=== PATIENT | female | born 1945 | race Caucasian/White ===

== ENCOUNTER → 2017-06-21 09:27 | Outpatient (CLI) | payer MEDICARE, OTHER ==
[2016-06-19 10:06] VITALS: BMI 26.9
[~2017-06-21 09:27] MED LIST: ACETAMINOPHEN500 M1 PO; ALENDRONATE SOD70 MG PO; CENTRUM COMPLE1 EACH PO; COREG6.25 MG PO; GLUCOPHAGE1000 MG PO; GLUCOTROL 5 MG T5 MG PO; HYDROCODON-ACE1 EAC7 PO; LEVOTHYROXINE50 MCG PO; LIPITOR20 MG PO; LISINOPRIL10 MG PO; MIRALAX17 GM PO; TRADJENTA5 MG PO
[2017-06-21 09:58] LABS: BASOPHILS 0.5 % (0-2); EOSINOPHILS 3.1 % (0-7); HEMATOCRIT 40.7 % (36.0-48.0); HEMOGLOBIN 13.4 g/dL (12-16); IMMATURE GRANULOCYTES 0.5 % (0-5); LYMPHOCYTES 42.3 % (15-50); MCH 29.5 pg (26.0-34.0); MCHC 32.9 g/dL (31.0-37.0); MCV 89.6 fL (80.0-100.0); MEAN PLATELET VOLUME 9.3 fL (7.4-10.4); MONOCYTES 5.4 % (2-11); NEUTROPHILS 48.2 % (40-80); RBC 4.54 10x6/uL (4.00-5.40); RDW 13.5 % (11.5-14.5); WBC 5.5 10x3/uL (4.8-10.8)
[2017-06-21 10:03] LABS: PLATELET COUNT 133 10x3/uL (130-400)
[2017-06-21 10:19] LABS: ALBUMIN 3.8 g/dL (3.4-5.0); ANION GAP 13.4 mmol/L (8-16); BILIRUBIN - DIRECT 0.17 mg/dL (0.00-0.30); BILIRUBIN - INDIRECT 0.48 mg/dL (0.00-1.00); BILIRUBIN - TOTAL 0.65 mg/dL (0.2-1.3); CALCIUM 9.4 mg/dL (8.5-10.1); CARBON DIOXIDE 26.3 mmol/L (21.0-32.0); POTASSIUM - SERUM 4.7 mmol/L (3.5-5.1)
== END | disposition home or self-care (01) ==
LOC: D.LAB 09:27 → D.CT 12:00
PROVIDERS: Surgery
DX: C18.2 Malignant neoplasm of ascending colon (principal)

== ENCOUNTER 2017-11-05 07:45 | Day surgery (SDC) | payer MEDICARE, OTHER ==
[~2017-11-05] VITALS: Ht 167.6 cm; Wt 77.6 kg
--- NOTE | ~2017-11-05 | OP ---
PATIENT NAME: IRINA SERNA MEDICAL RECORD: [id number] :43 LOCATION:D.OPS ADMISSION DATE: SURGEON: ALON MELGOZA MD DATE OF OPERATION: 11/05/2017 PREOPERATIVE DIAGNOSES: 1. 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 2. History of colon cancer. POSTOPERATIVE DIAGNOSES: 1. 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 2. History of colon cancer. 3. Some hemorrhage from the polypectomy site, which required the placement of a hemostatic clip. PROCEDURES: 1. Total colonoscopy to cecum. 2. Polypectomy with submucosal epinephrine injection through sclerotherapy needle, snare polypectomy, and then ablation of the polypoid base with the argon plasma instructor of sociology and control of hemorrhage with one hemostatic clip. SURGEON: Alon Melgoza MD [employer]CHNOLOG[employer] ARCHITECT: None. BLOOD LOSS: Minimal. ANESTHESIA: General. COMPLICATIONS: None. The risks, possible complications, and alternatives to procedure were explained to the patient. She elects to proceed. OPERATIVE COURSE: The patient was conveyed to the operating room electively on 11/05/2017. General anesthesia was induced by the anesthesia staff. The patient was placed in the Aleman position. A digital rectal examination was performed. A colonoscope was inserted through the anus. It was easily advanced to the cecum. The prep was poor. I then slowly withdrew the endoscope. I irrigated and aspirated extensively. I dragged the folds. The pullback was greater than a 20-minute pullback. I identified the polyp as well as the nearby tattoo. I performed a submucosal injection of epinephrine through a sclerotherapy needle. There was a good pillow and lift of the polyp from the colonic wall. I advanced an endoscopic snare. I performed a snare polypectomy near the base of this semi-pedunculated polyp. I then performed some cold biopsies at the base of the polyp. Any of the remaining polyp was then ablated with the argon plasma instructor of sociology utilizing the right colon setting in the forced mode. There was still some bleeding. This was controlled with the application one endoscopic clip. An endoscopic retrieval bag was advanced and I grasped the polyp. It was then withdrawn out through the anus. The polyp was 3 cm in greatest dimension. I will see the patient back in my office in 2-3 weeks. I will very likely recommend that we perform another colonoscopy with the argon plasma instructor of sociology in 1 year. OPERATIVE REPORT [id number] IRINA SERNA TRANSINT:[id number] Voice Confirmation ID: [id number] DOCUMENT ID: [id number] ALON MELGOZA MD at 1157 CC: FEDE PARDO MD, MADI VASQUEZ MD, ALLEN GARDNER and [id number] DICTATION DATE: 11/05/17 1118 SPORTS MEDIA: 11/05/17 1412 [facility] [place] 11/05/[address] [id number]
[2017-11-05] MEDS ORDERED: CALCIUM 600 +1 EAC3 (08:14)
[2017-11-05] MEDS ORDERED: BENTYL10 MG PO (08:14)
[2017-11-05 08:26] LABS: BASOPHILS 0.5 % (0-2); EOSINOPHILS 4.1 % (0-7); HEMATOCRIT 41.3 % (36.0-48.0); HEMOGLOBIN 13.6 g/dL (12-16); IMMATURE GRANULOCYTES 0.2 % (0-5); LYMPHOCYTES 45.7 % (15-50); MCH 29.4 pg (26.0-34.0); MCHC 32.9 g/dL (31.0-37.0); MCV 89.2 fL (80.0-100.0); MEAN PLATELET VOLUME 9.2 fL (7.4-10.4); MONOCYTES 6.8 % (2-11); NEUTROPHILS 42.7 % (40-80); PLATELET COUNT 131 10x3/uL (130-400); RBC 4.63 10x6/uL (4.00-5.40); RDW 13.9 % (11.5-14.5); WBC 6.3 10x3/uL (4.8-10.8)
[2017-11-05 08:28] VITALS: BP 135/77; Ht 167.6 cm; Wt 77.6 kg
[2017-11-05 08:38] LABS: ANION GAP 16.6 mmol/L (8-16); APTT 25.2 SECONDS (22.8-39.4); CALCIUM 9.4 mg/dL (8.5-10.1); CARBON DIOXIDE 26.8 mmol/L (21.0-32.0); INR 1.1 (0.85-1.17); POTASSIUM - SERUM 4.4 mmol/L (3.5-5.1); PROTIME 13.8 SECONDS (11.6-15.0)
== END 2017-11-05 12:59 | disposition home or self-care (01) ==
LOC: D.OPS 07:45 → D.PAN 10:40 → D.OPS 12:59 → D.PAN 13:10 → D.OPS 13:15
PROVIDERS: Anesthesiology
DX: D12.3 Benign neoplasm of transverse colon (principal); Z85.038 Personal history of other malignant neoplasm of large intestine; Z01.812 Encounter for preprocedural laboratory examination

== ENCOUNTER → 2018-07-14 12:02 | Outpatient (CLI) | payer MEDICARE, OTHER ==
[2017-11-05 08:28] VITALS: BMI 27.6
[~2018-07-14 12:02] MED LIST changes: +BENTYL10 MG PO; +CALCIUM 600 +1 EAC3
== END | disposition home or self-care (01) ==
LOC: D.MRI 12:02
DX: S09.90XA Unspecified injury of head, initial encounter (principal); W19.XXXA Unspecified fall, initial encounter

== ENCOUNTER → 2018-12-12 08:48 | Outpatient (CLI) | payer MEDICARE, OTHER ==
[2017-11-05 08:28] VITALS: BMI 27.6
== END | disposition home or self-care (01) ==
LOC: D.HCCARDIO 08:48
PROVIDERS: ATTEND Internal Medicine Cardiovascular Disease
DX: I34.0 Nonrheumatic mitral (valve) insufficiency (principal)

== ENCOUNTER → 2019-12-10 13:14 | Outpatient (CLI) | payer OTHER ==
[2017-11-05 08:28] VITALS: BMI 27.6
== END | disposition home or self-care (01) ==
LOC: D.HCCECHO 13:14
PROVIDERS: ATTEND Internal Medicine Cardiovascular Disease
DX: I42.9 Cardiomyopathy, unspecified (principal)